=== PATIENT | female | born 1945 | race Caucasian/White ===

== ENCOUNTER 2023-02-06 02:44 | Emergency (ER) | payer MEDICARE ==
[2023-02-06] MEDS ORDERED: Aspirin 81 MG Tab.Chew PO ONE (02:45)
[2023-02-06] MEDS ORDERED: Sodium Chloride 0.9% 10 ML Syringe FLUSH PRN (02:46)
[2023-02-06 02:55] LABS: BASOPHILS ABSOLUTE AUTO 0.04 K/uL (0.00-0.10); BASOPHILS PERCENT AUTO 0.6 % (0.1-1.3); EOSINOPHILS ABSOLUTE AUTO 0.21 K/uL (0.00-0.40); EOSINOPHILS PERCENT AUTO 3.2 % (0.0-5.4); HEMOGLOBIN 12.7 g/dL (11.2-15.5); IMMATURE GRAN PERCENT AUTO 0.3 % (0.0-0.7); LYMPHOCYTES ABSOLUTE AUTO 3.32 K/uL (0.8-3.3); MEAN CORPUSCULAR HEMOGLOBIN 32.2 pg (31.6-35.5); MEAN CORPUSCULAR HGB CONC 34.3 g/dL (31.6-35.5); MEAN CORPUSCULAR VOLUME 93.9 fL (81.4-99.0); MONOCYTES ABSOLUTE AUTO 0.55 K/uL (0.20-0.90); MONOCYTES PERCENT AUTO 8.3 % (3.3-12.6); NEUTROPHILS PERCENT AUTO 37.6 % (40.0-78.1); PLATELET COUNT,PLT 330 K/uL (130-375); RED BLOOD CELL COUNT 3.94 M/uL (3.77-5.24); WHITE BLOOD CELL COUNT,WBC 6.6 K/uL (3.2-11.0)
[2023-02-06 02:57] LABS: IMMATURE GRAN ABSOLUTE AUTO 0.02 K/uL (0.00-0.23)
[2023-02-06 03:12] LABS: CALCIUM 9.1 mg/dL (8.5-10.1); CREATININE 0.7 mg/dL (0.6-1.0); EST CRCL DRUG DOSING (CG) 47.58 mL/min; POTASSIUM,K 3.9 mmol/L (3.6-5.2)
[2023-02-06 03:14] LABS: ANION GAP 15.9 mmol/L (5.0-14.0)
[2023-02-06 03:16] LABS: INR 0.9; PROTHROMBIN TIME 9.6 sec (9.2-10.6); PTT,PARTIAL THROMBOPLSTIN TIME 25.8 sec (21.8-27.3)
[2023-02-06] MEDS ORDERED: Ketorolac 30 MG/ML SDV IVPUSH ONE (03:41)
== END 2023-02-06 04:48 | disposition home or self-care (01) ==
LOC: JP.ED 02:44
DX: M25.512 Pain in left shoulder (principal); E78.5 Hyperlipidemia, unspecified; Z79.899 Other long term (current) drug therapy
CPT/HCPCS: 36415; 73030; 80048; 84484; 85025; 85379; 85610; 85730; 93005; 96374; 99284; A9270; J1885; J3490; 93010